=== PATIENT | male | born 1970 | race Caucasian/White ===

== ENCOUNTER → 2017-03-02 | Outpatient (CLI) | payer OTHER ==
--- NOTE | 2017-03-02 11:46 | CR ---
EXAMINATION: Right shoulder HISTORY: Pain COMPARISON: None TECHNIQUE: 3 views FINDINGS/IMPRESSION: There is no acute osseous abnormality, dislocation, or fracture identified. Bon e mineralization and joint spaces appear preserved.
== END | disposition home or self-care (01) ==
LOC: MW.CHORTHO 07:56
PROVIDERS: ATTEND Orthopaedic Surgery
DX: M25.511 Pain in right shoulder (principal)
CPT/HCPCS: 73030-26-RT; 73030-RT

== ENCOUNTER → 2017-03-06 | Outpatient (CLI) | payer OTHER ==
--- NOTE | 2017-03-07 10:59 | MR ---
EXAM DATE: 03/06/17 PATIENT'S AGE: 46 Patient: BATSHEVA HU Facility: [place], [place] Site . Site : 1970 Study: MRI Shoulder Right [id number]/2017 6:45:43 PM Ordering Physician: My Ramos Final Report: HISTORY: Right shoulder pain. Pain with shoulder movement. Technique: MRI right shoulder without contrast. Comparison: None. Findings: Rotator cuff: Low-grade partial-thickness articular surface tearing of the supraspinatus tendon footplate. Tear measures 0.7 cm in AP dimension by 0.2 cm in medial-lateral dimension. Distal supraspinatus and infraspinatus tendons are otherwise thickened with heterogeneous intermediate to near fluid intensity signal. There may be low-grade articular surface fraying of the supraspinatus tendon medial to the insertion. Low grade partial-thickness bursal surface tearing of the subscapularis tendon over an area measuring 0.4 x 0.4 cm. Moderate subscapularis tendinosis. Teres minor tendon is intact. Rotator cuff muscle bulk and signal intensity are within normal limits. Acromioclavicular joint and coracoacromial arch: Mild AC joint degenerative changes. No inferior hypertrophy. Type 1 acromial morphology. Acromiohumeral interval measures 7 mm. Coracoacromial ligament is thickened near the acromial attachment. Coracoclavicular ligament is intact. Biceps-labral complex: Long head biceps tendon is intact. No biceps tendon subluxation. Tearing of the superior, posterior-superior, and posterior- inferior labrum. Small paralabral cysts along the posterior-superior posterior and inferior margin of the glenoid. No cyst extension into the suprascapular spinoglenoid notches. Anterior-inferior labrum is intact. Glenohumeral joint: No focal cartilage defects. No joint effusion. Bones and soft tissues: No fracture. No marrow replacing process. No subacromial -subdeltoid bursal effusion. Deltoid muscle bulk and signal intensity are normal. No abnormality in the suprascapular or spinoglenoid notches or in the quadrilateral space. Impression: 1. No high-grade partial-thickness or full-thickness rotator cuff tear. Low- grade partial-thickness articular surface tear of the subscapularis tendon at the insertion. Moderate-severe tendinosis versus strain related changes of the supraspinatus and infraspinatus tendons. 2. Moderate subscapularis tendinosis with low-grade partial-thickness bursal surface tearing. 3. Tear of the superior, posterior-superior, and posterior inferior labrum with small paralabral cysts. 4. Mild AC joint degenerative changes. 5. Intact biceps tendon. Dictated by Tuan Bryant MD @ Mar 07 2017 9:44AM (Electronic Signature) Report Signed by Proxy and Original Signed Document filed in the Medical Record. MTDD
== END ==
LOC: MW.MRI 16:19
PROVIDERS: ATTEND Orthopaedic Surgery
DX: M25.511 Pain in right shoulder (principal); R74.0 Nonspecific elevation of levels of transaminase and lactic acid dehydrogenase [LDH]; M75.81 Other shoulder lesions, right shoulder; S43.491A Other sprain of right shoulder joint, initial encounter
CPT/HCPCS: 36415; 73221-26-RT; 73221-RT; 80053

== ENCOUNTER → 2017-03-14 | Outpatient (CLI) | payer BC ==
--- NOTE | 2017-03-15 13:22 | US ---
EXAM DATE: 03/14/17 PATIENT'S AGE: 46 Patient: BATSHEVA HU Facility: [place], [place] Site . Site : 1970 Study: US Abdomen [id number] 9:35:42 AM Ordering Physician: Fabiana Chappell Final Report: INDICATION: Elevated transaminase TECHNIQUE: Ultrasound abdomen limited. Sonographic images of the right upper quadrant were obtained using barroso-scale and color Doppler images. COMPARISON: None FINDINGS: Liver: Diffuse fatty infiltration of the liver. No masses. No intrahepatic biliary dilatation. Gallbladder: No stones or sludge. Normal wall thickness. No pericholecystic fluid. Common bile duct: 5 mm. Pancreas: Normal. Right kidney: 11.6 cm. Normal echotexture and cortex. No masses, stones, or hydronephrosis. None. IMPRESSION: Diffuse fatty infiltration of the liver. Sonographically normal gallbladder and common bile duct. Dictated by Elias Price MD @ Mar 15 2017 10:08AM (Electronic Signature) Report Signed by Proxy and Original Signed Document filed in the Medical Record. [facility]
--- NOTE | 2017-03-16 14:04 | CR ---
EXAM DATE: 03/14/17 PATIENT'S AGE: 46 Patient: BATSHEVA HU Facility: [place], [place] Site . Site : 1970 Study: XRay Knee Left [id number]/2017 2:52:17 PM Ordering Physician: Fabiana Chappell Final Report: HISTORY: Pain. Findings: Standing AP and PA views of both knees were obtained with lateral an sunrise views of the left knee. Exam is compared with 19 August 2014. Space are preserved. There is mild spurring of the medial femoral condyle and lateral femoral condyle. Small amount of suprapatellar joint fluid is seen. No fracture or dislocation. Impression: 1. Mild degenerative changes of the medial and lateral joint spaces of the left knee with mild spurring of the femur. 2. Small amount of suprapatellar joint fluid without acute bony abnormality. Dictated by Mai Malik MD @ Mar 15 2017 10:08PM (Electronic Signature) Report Signed by Proxy. RAJINDER
== END ==
LOC: MW.US 08:49
PROVIDERS: ATTEND Physician Assistant
DX: M25.562 Pain in left knee (principal); R74.0 Nonspecific elevation of levels of transaminase and lactic acid dehydrogenase [LDH]; M76.891 Other specified enthesopathies of right lower limb, excluding foot; M25.461 Effusion, right knee; K76.0 Fatty (change of) liver, not elsewhere classified
CPT/HCPCS: 73564-26-LT; 73564-LT; 76705; 76705-26

== ENCOUNTER 2018-12-26 09:14 | Emergency (ER) | payer BC, OTHER ==
--- NOTE | 2018-12-26 10:26 | CR ---
EXAMINATION: Two-view chest (PA and Lateral views). HISTORY: Shortness of breath. FINDINGS: The trachea is midline. The cardiomediastinal silhouette is within normal limits. No pulmonary infiltrates, effusions or pneumothorax. Osseous structures appear unremarkable. IMPRESSION: No acute cardiopulmonary process.
--- NOTE | 2018-12-26 10:45 | EDM.PDOC ---
ED HPI GENERAL MEDICAL PROBLEM - General Chief Complaint: Respiratory Problem Stated Complaint: FEVER,COUGH Time Seen by Provider: 12/26/18 09:36 Source of Information: Reports: Patient History Limitations: Reports: No Limitations - History of Present Illness INITIAL COMMENTS - FREE TEXT/NARRATIVE: History of present illness: []Patient's had 4 days of cough, body aches, fevers, chills, congestion and this morning noted that he coughed up a small amount blood in the shower. Denies any chest pain, shortness of breath or syncope Review of systems: As per history of present illness and below otherwise all systems reviewed and negative. Past medical history: As per history of present illness and as reviewed below otherwise noncontributory. Surgical history: As per history of present illness and as reviewed below otherwise noncontributory. Social history: No reported history of drug or alcohol abuse. Family history: As per history of present illness and as reviewed below otherwise noncontributory. Physical exam: General: Well developed, well nourished in NAD HEENT: Atraumatic, normocephalic, pupils reactive, negative for conjunctival pallor or scleral icterus, mucous membranes moist, throat clear, neck supple, nontender, trachea midline. No stridor, TMs normal Lungs: Clear to auscultation, breath sounds equal bilaterally, chest nontender. No rhonchi Heart: S1S2, regular, negative for clicks, rubs, or JVD. Abdomen: NABS, Soft, nondistended, nontender. Negative for masses or hepatosplenomegaly. Negative for costovertebral tenderness. Pelvis: Stable nontender. Genitourinary: Deferred. Rectal: Deferred. Extremities: Atraumatic, negative for cords or calf pain. Neurovascular unremarkable. Neuro: Awake, alert, oriented. Cranial nerves II through XII unremarkable. Cerebellum unremarkable. Motor and sensory unremarkable throughout. Exam nonfocal. Skin:warm and dry Diagnostics: Influenza chest x-ray both negative Therapeutics: Declined pain meds ED Course: Unremarkable Impression: Viral bronchitis Prescriptions: None Plan: Follow-up with primary care, Motrin, Tylenol, increase fluids. Definitive disposition and diagnosis as appropriate pending reevaluation and review of above. Generalized Pain Score (Numeric/FACES): 4 - Related Data Allergies Allergy/AdvReac Type Severity Reaction Status Date / Time hydrocodone Allergy Nausea Verified 12/26/18 09:25 oxycodone [Oxycodone] Allergy Nausea Verified 12/26/18 09:25 Home Meds: Home Meds Aspirin 325 mg PO DAILY 03/11/14 [History] Past Medical History Neurological History: Reports: CVA - Infectious Disease History Infectious Disease History: Reports: Meningitis, Shingles - Past Surgical History HEENT Surgical History: Reports: Tonsillectomy Musculoskeletal Surgical History: Reports: Arthroscopic Knee, Carpal Tunnel, Shoulder Surgery Social & Family History - Family History Family Medical History: Noncontributory - Tobacco Use Years of Tobacco use: 20 Packs/Tins Daily: 1 - Caffeine Use Caffeine Use: Reports: None - Recreational Drug Use Recreational Drug Use: No ED ROS GENERAL - Review of Systems Review Of Systems: ROS reveals no pertinent complaints other than HPI. ED EXAM, GENERAL - Physical Exam Exam: See Below (See history of present illness) Course - Vital Signs Last Recorded V/S: Last Vital Signs Temp 97.9 F 12/26/18 09:21 Pulse 64 12/26/18 09:21 Resp 18 12/26/18 09:21 BP 130/89 12/26/18 09:21 Pulse Ox 96 12/26/18 09:21 Departure - Departure Time of Disposition: 10:43 Disposition: Home, Self-Care 01 Condition: Good Clinical Impression: Viral bronchitis - Discharge Information *PRESCRIPTION DRUG MONITORING PROGRAM REVIEWED*: No *COPY OF PRESCRIPTION DRUG MONITORING REPORT IN PATIENT ANIBAL: No Referrals: Hima Hudson MD [Primary Care Provider] - Additional Instructions: The following information is given to patients seen in the emergency department who are being discharged to home. This information is to outline your options for follow-up care. We provide all patients seen in our emergency department with a follow-up referral. The need for follow-up, as well as the timing and circumstances, are variable depending upon the specifics of your emergency department visit. If you don't have a primary care physician on staff, we will provide you with a referral. We always advise you to contact your personal physician following an emergency department visit to inform them of the circumstance of the visit and for follow-up with them and/or the need for any referrals to a consulting specialist. The emergency department will also refer you to a specialist when appropriate. This referral assures that you have the opportunity for follow-up care with a specialist. All of these measure are taken in an effort to provide you with optimal care, which includes your follow-up. Under all circumstances we always encourage you to contact your private physician who remains a resource for coordinating your care. When calling for follow-up care, please make the office aware that this follow-up is from your recent emergency room visit. If for any reason you are refused follow-up, please contact the [facility] Emergency Department at and asked to speak to the emergency department charge nurse. [facility] [address] [place] [id number]
[2018-12-26 10:50] VITALS: BP 107/80
== END 2018-12-26 10:50 | disposition home or self-care (01) ==
LOC: MW.ED 09:14
DX: J20.8 Acute bronchitis due to other specified organisms (principal); B97.89 Other viral agents as the cause of diseases classified elsewhere; Z88.6 Allergy status to analgesic agent; Z79.82 Long term (current) use of aspirin; Z86.73 Personal history of transient ischemic attack (TIA), and cerebral infarction without residual deficits; Z98.890 Other specified postprocedural states
CPT/HCPCS: 71046; 71046-26; 87804; 99284

== ENCOUNTER 2020-01-08 11:38 | Day surgery (SDC) | payer BC, OTHER ==
[~2020-01-08 11:38] MED LIST: Bupivacaine 0.5% 10 ML SDV ONE; Lactated Ringers 1,000 ML IV SCH; ceFAZolin 2 GM in Premix Bag 1 BAG IV SCH
[2020-01-08] MEDS ORDERED: Midazolam 1 MG/ML 2 ML SDV ONE ×2 (12:03→12:54)
[2020-01-08] MEDS ORDERED: fentaNYL 100 MCG/2 ML SDV ONE ×2 (12:03→12:54)
[2020-01-08] MEDS ORDERED: Rocuronium 100 MG/10 ML Syringe ONE (12:34)
[2020-01-08] MEDS ORDERED: Lidocaine 2% 5 ML SDV ONE (12:34)
[2020-01-08] MEDS ORDERED: Propofol 200 MG/20 ML SDV ONE ×2 (12:34→12:39)
--- NOTE | 2020-01-08 12:55 | PCM.PREANE ---
Preanesthetic Assessment - Anesthesia/Transfusion/Family Hx Anesthesia History: Prior Anesthesia Without Reaction Other Type of Anesthesia Reaction Comment: Spouse denies any known problem in past, 'little motion sickness' Family History of Anesthesia Reaction: No Transfusion History: No Prior Transfusion(s) Intubation History: Unknown - Review of Systems General: No Symptoms Pulmonary: No Symptoms Cardiovascular: No Symptoms Gastrointestinal: No Symptoms Neurological: No Symptoms Other: Reports: None - Physical Assessment Vital Signs: Last Vital Signs Temp 35.8 C L 01/08/20 11:50 Pulse 42 L 01/08/20 11:50 Resp 15 01/08/20 11:50 BP 125/87 01/08/20 11:50 Pulse Ox 99 01/08/20 11:50 Height: 6 ft Weight: 99.79 kg ASA Class: 2 Mental Status: Alert & Oriented x3 Airway Class: Mallampati = 2 Dentition: Reports: Normal Dentition Thyro-Mental Finger Breadths: 3 Mouth Opening Finger Breadths: 2 ROM/Head Extension: Full Lungs: Clear to Auscultation, Normal Respiratory Effort Cardiovascular: Regular Rate, Regular Rhythm - Allergies Allergies/Adverse Reactions: Allergies Allergy/AdvReac Type Severity Reaction Status Date / Time No Known Allergies Allergy Verified 01/03/20 12:27 - Blood Blood Available: No - Anesthesia Plan Pre-Op Medication Ordered: None - Acknowledgements Anesthesia Type Planned: General Anesthesia (interscalene brachial plexus block for postoperative pain control) Pt an Appropriate Candidate for the Planned Anesthesia: Yes Alternatives and Risks of Anesthesia Discussed w Pt/Guardian: Yes Pt/Guardian Understands and Agrees with Anesthesia Plan: Yes PreAnesthesia Questionnaire HEENT History: Reports: Other (See Below) Other HEENT History: wears glasses Respiratory History: Reports: Sleep Apnea Other Respiratory History: was just tested for sleep apnea and has not received CPAP yet Gastrointestinal History: Reports: GERD Other Gastrointestinal History: takes OTC medications (rolaids) Musculoskeletal History: Reports: Arthritis, Back Pain, Chronic, Fracture Other Musculoskeletal History: hx of fx ribs and left radius Neurological History: Reports: Concussion, CVA, Migraines Other Neuro History: had a stroke in 2009 from unknown causes- rt. side weakness plus speech ,no residual, takes daily aspirin Hematologic History: Reports: Anticoagulation Therapy Other Hematologic History: takes Aspirin 325mg daily Oncologic (Cancer) History: Dermatologic History: Reports: Other (See Below) Other Dermatologic History: recent rash on elbows - Infectious Disease History Infectious Disease History: Reports: Meningitis, Shingles - Past Surgical History Head Surgeries/Procedures: Reports: None HEENT Surgical History: Reports: Tonsillectomy Male Surgical History: Reports: Vasectomy Musculoskeletal Surgical History: Reports: Arthroscopic Knee, Shoulder Surgery Other Musculoskeletal Surgeries/Procedures:: hx of 2 left knee arthroscopies and right knee arthroscopy, hx of dislocated right shoulder '97 - SUBSTANCE USE Tobacco Use Within Last Twelve Months: Snuff/Dip Recreational Drug Use History: No - HOME MEDS Home Medications: Home Meds Aspirin 325 mg PO DAILY 03/11/14 [History] Ondansetron HCl [Zofran] 8 mg PO TID #15 tablet 01/08/20 [Rx] oxyCODONE HCl/Acetaminophen [Percocet 5-325 mg Tablet] 1 each PO Q6HR #28 tablet 01/08/20 [Rx] - CURRENT (IN HOUSE) MEDS Current Meds: Current Medications Cefazolin Sodium/Dextrose 2 gm (/ Premix) 50 mls @ 100 mls/hr IV ONCALL DONELL Lactated Ringer's (Ringers, Lactated) 1,000 mls @ 100 mls/hr IV ASDIRECTED DONELL Discontinued Medications Bupivacaine HCl (Sensorcaine-Mpf 0.5%) Confirm Administered Dose 10 ml .ROUTE .STK-MED ONE Stop: 01/08/20 11:39 Fentanyl (Sublimaze) Confirm Administered Dose 100 mcg .ROUTE .STK-MED ONE Stop: 01/08/20 12:04 Lidocaine (Xylocaine-Mpf 2%) Confirm Administered Dose 5 ml .ROUTE .STK-MED ONE Stop: 01/08/20 12:35 Midazolam HCl (Versed 1 Mg/Ml) Confirm Administered Dose 2 mg .ROUTE .STK-MED ONE Stop: 01/08/20 12:04 Propofol (Diprivan 20 Ml) Confirm Administered Dose 200 mg .ROUTE .STK-MED ONE Stop: 01/08/20 12:35 Propofol (Diprivan 20 Ml) Confirm Administered Dose 200 mg .ROUTE .STK-MED ONE Stop: 01/08/20 12:40 Rocuronium [place] (Zemuron) Confirm Administered Dose 100 mg .ROUTE .STK-MED ONE Stop: 01/08/20 12:35
[2020-01-08] MEDS ORDERED: Glycopyrrolate 0.2 MG/ML SDV ONE ×2 (13:39)
[2020-01-08] MEDS ORDERED: Ondansetron 4 MG/2 ML SDV ONE (14:10)
[2020-01-08] MEDS ORDERED: ePHEDrine 50 MG/ML SDV ONE (14:14)
[2020-01-08] MEDS ORDERED: Sugammadex Sodium 200 MG/2 ML VIAL ONE (14:23)
--- NOTE | 2020-01-08 15:01 | PCM.SN ---
- Free Text/Narrative Note: Procedure note: Right interscalene brachial plexus block for postoperative pain control. The brachial plexus easily identified under sterile conditions using Stimuplex needle. Mixture of 20 cc of 0.5 Bupivacaine and 10 cc of 2% lidocaine injected. Excellent block achieved. Patient tolerated procedure well.
--- NOTE | 2020-01-08 15:45 | PCM.POSTAN ---
POST ANESTHESIA ASSESSMENT - MENTAL STATUS Mental Status: Alert, Oriented - VITAL SIGNS Vital Signs: Last Vital Signs Temp 35.7 C L 01/08/20 15:04 Pulse 59 L 01/08/20 15:33 Resp 13 01/08/20 15:33 BP 114/81 01/08/20 15:33 Pulse Ox 97 01/08/20 15:33 - RESPIRATORY Respiratory Status: Respiratory Rate WNL, Airway Patent, O2 Saturation Stable - CARDIOVASCULAR CV Status: Pulse Rate WNL, Blood Pressure Stable - GASTROINTESTINAL GI Status: No Symptoms - PAIN Pain Score: 4 - POST OP HYDRATION Hydration Status: Adequate & Stable - OBSERVATIONS Free Text/Narrative:: No anesthesia problems.
[2020-01-08] MEDS ORDERED: Ketorolac 30 MG/ML SDV IVPUSH ONE (16:13)
[2020-01-08] MEDS ORDERED: Ketorolac 30 MG/ML SDV ONE (16:17)
--- NOTE | 2020-01-08 17:27 | PCM48HPAN ---
Post Anesthesia Note - EVALUATION WITHIN 48HRS OF ANESTHETIC Vital Signs in Normal Range: Yes Patient Participated in Evaluation: Yes Respiratory Function Stable: Yes Airway Patent: Yes Cardiovascular Function Stable: Yes Hydration Status Stable: Yes Pain Control Satisfactory: Yes Nausea and Vomiting Control Satisfactory: Yes Mental Status Recovered: Yes Vital Signs: Last Vital Signs Temp 36.0 C L 01/08/20 15:20 Pulse 59 L 01/08/20 15:33 Resp 13 01/08/20 15:33 BP 114/81 01/08/20 15:33 Pulse Ox 97 01/08/20 15:33 - COMMENTS/OBSERVATIONS Free Text/Narrative:: No anesthesia problems.
[2020-01-08 17:59] VITALS: BP 116/82; PULSE 46
--- NOTE | 2020-01-09 16:42 | PCM.OPNOTE ---
- General Post-Op/Procedure Note Date of Surgery/Procedure: 01/08/20 Operative Procedure(s): right shoulder arthroscopy. subacromial decompression. labral debridement. rotator cuff repair Pre Op Diagnosis: right shoulder rotator cuff tear. right shoulder impingement. right glenoid labral tear Post-Op Diagnosis: Same Anesthesia Technique: General ET Tube Primary Surgeon: Suresh Holm Trauma Surgeon: Jada Crowley EBL in mLs: 25 Complications: None Condition: Stable
--- NOTE | 2020-01-09 22:48 | OR ---
SURGEON: Suresh Holm DATE OF PROCEDURE: 01/08/2020 PREOPERATIVE DIAGNOSIS: Right shoulder rotator cuff tear, right shoulder impingement, right glenoid labral tear. POSTOPERATIVE DIAGNOSIS: Right shoulder rotator cuff tear, right shoulder impingement, right glenoid labral tear. PROCEDURE: Right shoulder arthroscopy, right shoulder subacromial decompression, labral debridement, and open rotator cuff repair. BREAK AND LOAD OPERATOR: SVEN Pino ROLE OF BREAK AND LOAD OPERATOR: Nurse practitioner, SVEN Pino, played an essential role in assisting in this case, helping to position the patient, retract structures as needed, as well as suturing and cutting sutures as indicated. Her presence improved patient's safety and decreased operative time. ANESTHESIA: General endotracheal intubation. FLUIDS: Lactated Ringer's solution. ESTIMATED BLOOD LOSS: 25 mL. COMPLICATIONS: None. SPECIMEN: None. DISCHARGE DISPOSITION: Stable to PACU. HISTORY AND INDICATION FOR THE PROCEDURE: The patient was seen preoperatively in the clinic. He had failed nonoperative treatment. Preoperative imaging confirmed the above-mentioned diagnosis. Risks and goals of the procedure were explained to the patient and informed consent was obtained. DETAILS OF THE PROCEDURE: The patient was seen preoperatively by me and the Anesthesia staff in the preoperative holding area where the operative site was marked. He had an interscalene block performed preoperatively in the preoperative holding area by the anesthesia staff. He was brought to the operative suite by Anesthesia staff where general endotracheal intubation was performed. He was placed in the beach chair position. All extremities were found to be well padded. The right upper extremity was then prepped and draped in sterile manner. A time-out was called identifying the correct patient, the correct site, and then antibiotics had been given within appropriate period of time. A posterior portal was first made with a knife and then trocar was entered and then the camera was placed in. There was extensive labral fraying present. There was moderate chondromalacia of both the humeral and the glenoid side. There was an extensive synovitis present. Partial synovectomy was performed. An anterior portal was then made with the spinal needle knife and trocar and then a shaver was used to enter and debride the glenoid labrum and then an ablation unit was used to stabilize the edges of the labrum and then the synovectomy was performed with both the shaver and the ablation unit. After this had been cleaned up nicely, we then removed our instruments and then reinserted the trocar into the subacromial space from the posterior aspect and then made a lateral incision and inserted the shaver. An extensive bursitis was present. We performed an extensive bursectomy. I then visualized the acromion, which was at least type 3. I then used the ablation unit to delineate the edges anteriorly. We then used a bur through the lateral portal to perform a subacromial decompression. After this had been accomplished, we then removed our instruments and then I re-prepped with ChloraPrep, and then made a saber incision lateral to the distal acromion. I went through the anterior medial raphae of the deltoid. The MRI had shown that there was thinning of the fibers of the supraspinatus and I could feel this area. It was definitely thin. I made a longitudinal incision through this area and then prepped the area for the anchor. I placed an Iconix anchor and then used a free needle and whipstitched my sutures through the good portion of the tendon and then back to the anchor and then tied it. I then placed another anchor, which unfortunately broke off and then we placed another distal anchor and then a knotless anchor, and then ran our sutures through this anchor and then tightened them up and then cut the sutures. Having accomplished our goals, we then copiously irrigated with Betadine infused irrigation. My assist, closed the deltoid in a watertight manner with #1 Stratafix and then closed subcutaneously with #1 Stratafix followed by skin chi and our portals were closed with chi as well. Incisions were covered with Betadine-soaked Adaptic, fluffs, and Medipore tape. The patient was allowed to awaken from general anesthesia and taken to the PACU in stable condition. [id number] / MODL /[id number]
== END 2020-01-08 17:40 | disposition home or self-care (01) ==
LOC: MW.SDS 11:38
PROVIDERS: ATTEND Orthopaedic Surgery
DX: M75.101 Unspecified rotator cuff tear or rupture of right shoulder, not specified as traumatic (principal); M75.41 Impingement syndrome of right shoulder; S43.431A Superior glenoid labrum lesion of right shoulder, initial encounter; M94.211 Chondromalacia, right shoulder; M65.811 Other synovitis and tenosynovitis, right shoulder; M75.51 Bursitis of right shoulder; G89.18 Other acute postprocedural pain; E66.9 Obesity, unspecified; Z79.82 Long term (current) use of aspirin; Z68.31 Body mass index [BMI] 31.0-31.9, adult
CPT/HCPCS: 23410; 64415; J1885; J2001; J2250; J2405; J2704; J3010; J3490; J7120

== ENCOUNTER 2020-05-13 10:34 | Day surgery (SDC) | payer BC ==
[~2020-05-13 10:34] MED LIST changes: -Bupivacaine 0.5% 10 ML SDV ONE
--- NOTE | 2020-05-13 11:22 | PCM.PREANE ---
Preanesthetic Assessment - Anesthesia/Transfusion/Family Hx Anesthesia History: Prior Anesthesia Without Reaction Other Type of Anesthesia Reaction Comment: Spouse denies any known problem in past, 'little motion sickness' Family History of Anesthesia Reaction: No Transfusion History: No Prior Transfusion(s) Intubation History: Unknown - Review of Systems General: No Symptoms Pulmonary: No Symptoms Cardiovascular: No Symptoms Gastrointestinal: No Symptoms Neurological: No Symptoms Other: Reports: None - Physical Assessment Height: 6 ft Weight: 102.058 kg ASA Class: 2 Mental Status: Alert & Oriented x3 Airway Class: Mallampati = 2 Dentition: Reports: Normal Dentition Thyro-Mental Finger Breadths: 3 Mouth Opening Finger Breadths: 2 (smaller mouth) ROM/Head Extension: Full Lungs: Clear to Auscultation, Normal Respiratory Effort Cardiovascular: Regular Rate, Regular Rhythm - Allergies Allergies/Adverse Reactions: Allergies Allergy/AdvReac Type Severity Reaction Status Date / Time No Known Allergies Allergy Verified 05/11/20 11:29 - Blood Blood Available: No - Anesthesia Plan Pre-Op Medication Ordered: None - Acknowledgements Anesthesia Type Planned: General Anesthesia Pt an Appropriate Candidate for the Planned Anesthesia: Yes Alternatives and Risks of Anesthesia Discussed w Pt/Guardian: Yes Pt/Guardian Understands and Agrees with Anesthesia Plan: Yes PreAnesthesia Questionnaire HEENT History: Reports: Other (See Below) Other HEENT History: wears glasses Respiratory History: Reports: Sleep Apnea Other Respiratory History: was just tested for sleep apnea and has not received CPAP yet Gastrointestinal History: Reports: GERD Other Gastrointestinal History: takes OTC medications (rolaids) Musculoskeletal History: Reports: Arthritis, Back Pain, Chronic, Fracture (5th rt. 5th metacarpal bone fx.) Other Musculoskeletal History: hx of fx ribs and left radius Neurological History: Reports: Concussion, CVA, Migraines Other Neuro History: had a stroke in 2009 from unknown causes- rt. side weakness plus speech ,no residual, takes daily aspirin Endocrine/Metabolic History: Reports: Obesity/BMI 30+ (BMI 30.5) Hematologic History: Reports: Anticoagulation Therapy Other Hematologic History: takes Aspirin 325mg daily Oncologic (Cancer) History: Dermatologic History: Reports: Other (See Below) Other Dermatologic History: recent rash on elbows - Infectious Disease History Infectious Disease History: Reports: Meningitis, Shingles - Past Surgical History HEENT Surgical History: Reports: Tonsillectomy Male Surgical History: Reports: Vasectomy Musculoskeletal Surgical History: Reports: Arthroscopic Knee, Shoulder Surgery Other Musculoskeletal Surgeries/Procedures:: hx of 2 left knee arthroscopies and right knee arthroscopy, hx of dislocated right shoulder '97 - SUBSTANCE USE Smoking Status *Q: Current Every Day Smoker Tobacco Use Within Last Twelve Months: Snuff/Dip Recreational Drug Use History: No - HOME MEDS Home Medications: Home Meds Aspirin 325 mg PO DAILY 03/11/14 [History] - CURRENT (IN HOUSE) MEDS Current Meds: Current Medications Lactated Ringer's (Ringers, Lactated) 1,000 mls @ 100 mls/hr IV ASDIRECTED DONELL Cefazolin Sodium/Dextrose 2 gm (/ Premix) 50 mls @ 100 mls/hr IV ONCALL DONELL
[2020-05-13] MEDS ORDERED: Bupivacaine 0.5%/EPINEPHrine 1:200,000 10 ML SDV ONE (12:15)
[2020-05-13] MEDS ORDERED: Ondansetron 4 MG/2 ML SDV ONE (12:17)
[2020-05-13] MEDS ORDERED: Ketorolac 30 MG/ML SDV ONE (12:17)
[2020-05-13] MEDS ORDERED: Glycopyrrolate 0.2 MG/ML SDV ONE (12:17)
[2020-05-13] MEDS ORDERED: Lidocaine 2% 5 ML SDV ONE (12:17)
[2020-05-13] MEDS ORDERED: Midazolam 1 MG/ML 2 ML SDV ONE (12:18)
[2020-05-13] MEDS ORDERED: fentaNYL 100 MCG/2 ML SDV ONE (12:18)
[2020-05-13] MEDS ORDERED: Propofol 200 MG/20 ML SDV ONE (12:18)
[2020-05-13] MEDS ORDERED: Sodium Chloride 0.9% 20 ML ONE (12:42)
[2020-05-13] MEDS ORDERED: ceFAZolin 1 GM Vial ONE (12:42)
[2020-05-13] MEDS ORDERED: fentaNYL 100 MCG/2 ML SDV IVPUSH PRN ×2 (13:03→14:30)
[2020-05-13] MEDS ORDERED: Acetaminophen 1,000 MG in Premix Bag 1 BAG IV PRN (13:03)
--- NOTE | 2020-05-13 14:09 | PCM.OPNOTE ---
- General Post-Op/Procedure Note Date of Surgery/Procedure: 05/13/20 Operative Procedure(s): orif right 5th metacarpal neck Pre Op Diagnosis: right fifth metacarpal neck fracture, closed Post-Op Diagnosis: Same Anesthesia Technique: General ET Tube Primary Surgeon: Suresh Holm EBL in mLs: 25 Complications: None Condition: Good
--- NOTE | 2020-05-13 14:43 | CR ---
Right hand: 3 fluoroscopic spot views were obtained of the right hand utilizing C-arm device. Comparison: Prior right hand exam of 05/07/20. Previous distal right 5th metacarpal fracture shows evidence of reduction and fixation with plate and screws. No additional abnormality is seen. Fluoroscopy time given as 7.7 seconds. Impression: 1. Procedural study as described above. Diagnostic code #2 This report was dictated in MDT
--- NOTE | 2020-05-13 14:50 | PCM.POSTAN ---
POST ANESTHESIA ASSESSMENT - MENTAL STATUS Mental Status: Alert, Oriented - VITAL SIGNS Vital Signs: Last Vital Signs Temp 36.2 C 05/13/20 14:19 Pulse 67 05/13/20 14:46 Resp 14 05/13/20 14:46 BP 131/78 05/13/20 14:46 Pulse Ox 94 L 05/13/20 14:46 - RESPIRATORY Respiratory Status: Respiratory Rate WNL, Airway Patent, O2 Saturation Stable - CARDIOVASCULAR CV Status: Pulse Rate WNL, Blood Pressure Stable - GASTROINTESTINAL GI Status: No Symptoms - PAIN Pain Score: 4 - POST OP HYDRATION Hydration Status: Adequate & Stable - OBSERVATIONS Free Text/Narrative:: No anesthesia problems
[2020-05-13] MEDS ORDERED: Acetaminophen/oxyCODONE 325-5 MG Tab PO PRN (15:02)
[2020-05-13] MEDS ORDERED: Acetaminophen/oxyCODONE 325-5 MG Tab ONE (15:18)
--- NOTE | 2020-05-13 15:38 | PCM48HPAN ---
Post Anesthesia Note - EVALUATION WITHIN 48HRS OF ANESTHETIC Vital Signs in Normal Range: Yes Patient Participated in Evaluation: Yes Respiratory Function Stable: Yes Airway Patent: Yes Cardiovascular Function Stable: Yes Hydration Status Stable: Yes Pain Control Satisfactory: Yes Nausea and Vomiting Control Satisfactory: Yes Mental Status Recovered: Yes Vital Signs: Last Vital Signs Temp 36.2 C 05/13/20 14:19 Pulse 67 05/13/20 14:46 Resp 14 05/13/20 14:46 BP 131/78 05/13/20 14:46 Pulse Ox 94 L 05/13/20 14:46 - COMMENTS/OBSERVATIONS Free Text/Narrative:: No anesthesia problems
--- NOTE | 2020-05-13 16:36 | OR ---
SURGEON: Suresh Holm DATE OF PROCEDURE: 05/13/2020 PREOPERATIVE DIAGNOSIS: Right 5th metacarpal neck fracture, closed. POSTOPERATIVE DIAGNOSIS: Right 5th metacarpal neck fracture, closed. PROCEDURES: 1. Right 5th metacarpal open reduction and internal fixation. 2. Application of short-arm splint. PRIMARY SURGEON: Suresh Holm DO KINESIOTHERAPIST: SVEN Pino ROLE OF KINESIOTHERAPIST: Nurse practitioner, SVEN Pino, played an essential role in assisting in this case, helping to position the patient, retract structures as needed, as well as suturing and cutting sutures as indicated. Her presence improved patient's safety and decreased operative time. ANESTHESIA: General endotracheal intubation. FLUID: Lactated Ringer's solution. ESTIMATED BLOOD LOSS: 25 mL. COMPLICATIONS: None. SPECIMEN: None. DISCHARGE DISPOSITION: Stable to PACU. HISTORY AND INDICATIONS FOR THE PROCEDURE: The patient is well known to me. He hurt his right hand about a week and a half to two weeks ago. He was seen in clinic. He was found to have the above- mentioned fracture. Risks and goals of the procedure were explained to the patient and informed consent was obtained. DETAILS OF PROCEDURE: The patient was seen preoperatively by myself and the Anesthesia staff in the preoperative holding area where the operative site was marked. He was brought to the operative suite by the Anesthesia staff where general anesthesia was administered. A well-padded tourniquet was placed on the right arm. The right upper extremity was then prepped and draped in a sterile manner. Time-out was called identifying the correct patient, the correct procedure, the correct site, and that antibiotics had been given within appropriate period of time. The right upper extremity was exsanguinated, tourniquet was raised to 200 mmHg and taken down to the end of the case. An incision was made just distal to the metacarpophalangeal joint extending proximally about 5 cm. This was taken down to the tendon. The tendon was moved ulnarly. I cut through one of the juncturae tendinae in order to separate this. I went down on the bone. The fracture line was visualized. It was definitely in about 25 degrees of flexion. I used a K-wire to hold this in position in extension. There were ulnar and radial fragments. I did place traction on this, but these did not reduce, and it was unclear as to where they were keying in at. I placed my distal screws with an L-plate, which provided some traction to get it at the length, and then kept the neck in proper angulation and then placed one of my nonlocking screws through the plate proximally. I then placed one locking screw and the remainder were locking screws. I then took my final AP, lateral, and oblique films. I then copiously irrigated with saline. I then repaired the juncturae tendinae and closed subcutaneously with 2-0 Vicryl interrupted sutures followed by 3-0 nylon horizontal mattress sutures. I did use Bovie electrocautery for hemostasis. After this had been accomplished, my first assistant then applied an ulnar gutter splint with plaster. The patient was then allowed to awaken from general anesthesia and taken to the PACU in stable condition. [id number] / MODL /[id number]
[2020-05-13 16:48] VITALS: BP 104/81; PULSE 63
== END 2020-05-13 15:45 | disposition home or self-care (01) ==
LOC: MW.SDS 10:34
PROVIDERS: ATTEND Orthopaedic Surgery
DX: S62.336A Displaced fracture of neck of fifth metacarpal bone, right hand, initial encounter for closed fracture (principal); Z11.59 Encounter for screening for other viral diseases; E66.9 Obesity, unspecified; F17.220 Nicotine dependence, chewing tobacco, uncomplicated; Z79.899 Other long term (current) drug therapy; Z68.35 Body mass index [BMI] 35.0-35.9, adult; W55.22XA Struck by cow, initial encounter; Y93.89 Activity, other specified
CPT/HCPCS: 26615; 76000; 87635; A9270; C1713; J0690; J1885; J2001; J2250; J2405; J2704; J3010; J3490; J7120; U0002

== ENCOUNTER 2022-04-20 10:36 | Day surgery (SDC) | payer BC ==
[~2022-04-20 10:36] MED LIST changes: -ceFAZolin 2 GM in Premix Bag 1 BAG IV SCH; +propofoL 100 ML ONE
[2022-04-20] MEDS ORDERED: Ondansetron 4 MG/2 ML SDV ONE (11:20)
[2022-04-20] MEDS ORDERED: Lidocaine 2% 5 ML SDV ONE (11:20)
[2022-04-20 14:10] VITALS: BP 116/77; PULSE 59
== END 2022-04-20 13:35 | disposition home or self-care (01) ==
LOC: MW.SDS 10:36
PROVIDERS: ATTEND Surgery
DX: Z12.11 Encounter for screening for malignant neoplasm of colon (principal); K57.30 Diverticulosis of large intestine without perforation or abscess without bleeding; K29.50 Unspecified chronic gastritis without bleeding; K21.9 Gastro-esophageal reflux disease without esophagitis; F17.220 Nicotine dependence, chewing tobacco, uncomplicated; Z80.0 Family history of malignant neoplasm of digestive organs; E66.9 Obesity, unspecified; I10 Essential (primary) hypertension; Z98.890 Other specified postprocedural states; Z79.82 Long term (current) use of aspirin; Z79.899 Other long term (current) drug therapy
CPT/HCPCS: J2405; J2704

== ENCOUNTER 2023-01-18 06:36 | Day surgery (SDC) | payer BC ==
[~2023-01-18 06:36] MED LIST changes: -propofoL 100 ML ONE
[2023-01-18] MEDS ORDERED: Naloxone 0.4 MG/ML SDV IVPUSH PRN (07:12)
[2023-01-18] MEDS ORDERED: Morphine 2 MG/ML SYRINGE IVPUSH PRN (07:12)
[2023-01-18] MEDS ORDERED: HYDROmorphone 1 MG/ML Syringe IVPUSH PRN (07:12)
[2023-01-18] MEDS ORDERED: fentaNYL 50 MCG/ML SDV IVPUSH PRN (07:12)
[2023-01-18] MEDS ORDERED: Ondansetron 4 MG/2 ML SDV IVPUSH PRN (07:12)
[2023-01-18] MEDS ORDERED: Albuterol 0.083% 2.5 MG/3 ML Neb Soln NEB PRN (07:12)
[2023-01-18] MEDS ORDERED: Metoclopramide 10 MG/2 ML SDV IVPUSH PRN (07:12)
[2023-01-18] MEDS ORDERED: Bupivacaine 0.25% 30 ML SDV ONE (07:22)
[2023-01-18] MEDS ORDERED: Ropivacaine 0.5% 5 MG/ML 30 ML SDV ONE (07:30)
[2023-01-18] MEDS ORDERED: fentaNYL 250 MCG/5 ML SDV ONE (07:41)
[2023-01-18] MEDS ORDERED: Propofol 200 MG/20 ML SDV ONE (07:41)
[2023-01-18] MEDS ORDERED: ceFAZolin 2 GM in Premix Bag 1 BAG IV SCH (08:00)
[2023-01-18] MEDS ORDERED: Lidocaine 2% 5 ML SDV ONE (08:03)
[2023-01-18] MEDS ORDERED: ceFAZolin 2 GM Vial ONE (08:03)
[2023-01-18] MEDS ORDERED: Glycopyrrolate 0.2 MG/ML SDV ONE ×2 (08:03)
[2023-01-18] MEDS ORDERED: Ondansetron 4 MG/2 ML SDV ONE (09:21)
[2023-01-18] MEDS ORDERED: Ketorolac 30 MG/ML SDV ONE (09:21)
[2023-01-18] MEDS ORDERED: Dexamethasone 4 MG/ML 5 ML MDV ONE (09:21)
[2023-01-18 10:56] VITALS: BP 133/84; PULSE 55
== END 2023-01-18 09:43 | disposition home or self-care (01) ==
LOC: MW.SDS 06:36
PROVIDERS: ATTEND Orthopaedic Surgery
DX: G56.01 Carpal tunnel syndrome, right upper limb (principal); F51.04 Psychophysiologic insomnia; K21.9 Gastro-esophageal reflux disease without esophagitis; I10 Essential (primary) hypertension; G47.33 Obstructive sleep apnea (adult) (pediatric); Z79.899 Other long term (current) drug therapy; M17.12 Unilateral primary osteoarthritis, left knee
CPT/HCPCS: 64721; J0131; J0690; J1100; J1885; J2405; J2704; J2795; J3010; J3490; J7120

== ENCOUNTER 2023-05-01 08:59 | Observation (INO) | payer BC ==
[2023-05-01 09:29] LABS: BASOPHILS PERCENT AUTO 0.3 % (0.0-1.5); EOSINOPHILS ABSOLUTE AUTO 0.1 K/uL (0.0-0.7); EOSINOPHILS PERCENT AUTO 1.6 % (0.0-7.0); HEMATOCRIT 45.3 % (38.0-50.0); HEMOGLOBIN 15.6 g/dL (13.0-17.0); LYMPHOCYTES ABSOLUTE AUTO 2.5 K/uL (0.6-2.4); LYMPHOCYTES PERCENT AUTO 33.7 % (16.0-40.0); MEAN CORPUSCULAR HEMOGLOBIN 32.4 pg (27.0-32.0); MEAN CORPUSCULAR HGB CONC 34.4 g/dL (31.0-37.0); MEAN CORPUSCULAR VOLUME 94.2 fL (80.0-98.0); MONOCYTES PERCENT AUTO 13.7 % (0.0-15.0); NEUTROPHILS ABSOLUTE AUTO 3.7 K/uL (1.4-5.7); NEUTROPHILS PERCENT AUTO 50.7 % (48.0-80.0); NRBC ABSOLUTE 0 K/uL; PLATELET COUNT,PLT 260 K/uL (150-400); RED BLOOD CELL COUNT 4.81 M/uL (4.50-5.90); WHITE BLOOD CELL COUNT,WBC 7.36 K/uL (4.0-11.0)
[2023-05-01 10:15] LABS: INR 0.94 (0.86-1.11); PTT,PARTIAL THROMBOPLSTIN TIME 26.1 SEC (23.9-30.7)
[2023-05-01 10:17] LABS: ALBUMIN 3.9 g/dL (3.4-5.0); BILIRUBIN TOTAL 0.5 mg/dL (0.2-1.0); CALCIUM 9.2 mg/dL (8.5-10.1); CARBON DIOXIDE,CO2 29.1 mmol/L (21.0-32.0); CREATININE 1.2 mg/dL (0.8-1.3); EST CRCL DRUG DOSING (CG) 79.94 mL/min; MAGNESIUM 2.1 mg/dL (1.8-2.4); POTASSIUM,K 3.9 mmol/L (3.5-5.1); PROTEIN TOTAL,TP 7.7 g/dL (6.4-8.2)
[2023-05-01] MEDS ORDERED: Gadobenate Dimeglumine 529 MG/ML 20 ML SDV IVPUSH STA (10:46)
[2023-05-01] MEDS ORDERED: Prochlorperazine 10 MG/2 ML SDV IVPUSH ONE (12:05)
[2023-05-01] MEDS ORDERED: diphenhydrAMINE 50 MG/ML SDV IVPUSH ONE (12:05)
[2023-05-01] MEDS ORDERED: Apixaban 5 MG Tab PO ONE (12:05)
[2023-05-01] MEDS ORDERED: Acetaminophen 325 MG Tab PO ONE (12:06)
[2023-05-01] MEDS ORDERED: Lactated Ringers 1,000 ML IV SCH (12:15)
[2023-05-01 13:05] LABS: HEMOGLOBIN A1C 5.7 %
[2023-05-01 13:32] LABS: TSH ULTRASENSITIVE 2.84 uIU/mL (0.36-3.74)
[2023-05-01] MEDS ORDERED: Clopidogrel 75 MG Tab PO SCH (14:45)
[2023-05-01] MEDS ORDERED: Aspirin 81 MG Tab.Chew PO SCH (14:45)
[2023-05-01 15:42] LABS: CALCIUM 9.5 mg/dL (8.5-10.1); CARBON DIOXIDE,CO2 24.2 mmol/L (21.0-32.0); CREATININE 1.3 mg/dL (0.8-1.3); EST CRCL DRUG DOSING (CG) 73.79 mL/min
[2023-05-01] MEDS: Pantoprazole 40 MG Tab.CR PO SCH (16:13)
[2023-05-01 17:12] LABS: APPEARANCE,URINE CLEAR; BILIRUBIN,URINE NEGATIVE (NEGATIVE); COLOR,URINE YELLOW; GLUCOSE,URINE NEGATIVE (NEGATIVE); KETONES,URINE NEGATIVE (NEGATIVE); LEUKOCYTE ESTERASE,URINE NEGATIVE (NEGATIVE); NITRITE,URINE NEGATIVE (NEGATIVE); OCCULT BLOOD,URINE NEGATIVE (NEGATIVE); PROTEIN,URINE NEGATIVE (NEGATIVE); UROBILINOGEN,URINE 0.2 EU/dL (<2.0)
[2023-05-01] MEDS ORDERED: Apixaban 5 MG Tab PO SCH (21:00)
[2023-05-01] MEDS ORDERED: atorvaSTATin 40 MG Tab PO SCH (21:00)
[2023-05-01] MEDS: Apixaban 5 MG Tab PO SCH (21:20)
[2023-05-02 06:01] LABS: BASOPHILS PERCENT AUTO 0.3 % (0.0-1.5); EOSINOPHILS ABSOLUTE AUTO 0.1 K/uL (0.0-0.7); EOSINOPHILS PERCENT AUTO 1.7 % (0.0-7.0); HEMATOCRIT 43.6 % (38.0-50.0); HEMOGLOBIN 14.8 g/dL (13.0-17.0); LYMPHOCYTES PERCENT AUTO 31.1 % (16.0-40.0); MEAN CORPUSCULAR HGB CONC 33.9 g/dL (31.0-37.0); MEAN CORPUSCULAR VOLUME 94.2 fL (80.0-98.0); MONOCYTES ABSOLUTE AUTO 0.9 K/uL (0.0-0.8); MONOCYTES PERCENT AUTO 13.3 % (0.0-15.0); NEUTROPHILS ABSOLUTE AUTO 3.4 K/uL (1.4-5.7); NEUTROPHILS PERCENT AUTO 53.6 % (48.0-80.0); NRBC ABSOLUTE 0 K/uL; PLATELET COUNT,PLT 237 K/uL (150-400); RED BLOOD CELL COUNT 4.63 M/uL (4.50-5.90); WHITE BLOOD CELL COUNT,WBC 6.39 K/uL (4.0-11.0)
[2023-05-02 06:25] LABS: CALCIUM 8.8 mg/dL (8.5-10.1); CARBON DIOXIDE,CO2 27.7 mmol/L (21.0-32.0); CREATININE 1.3 mg/dL (0.8-1.3); EST CRCL DRUG DOSING (CG) 73.79 mL/min; POTASSIUM,K 3.9 mmol/L (3.5-5.1)
[2023-05-02] MEDS: Pantoprazole 40 MG Tab.CR PO SCH (08:13)
[2023-05-02] MEDS: Apixaban 5 MG Tab PO SCH (08:13)
[2023-05-02 11:37] VITALS: BP 104/67; PULSE 54
== END 2023-05-02 10:20 | disposition home or self-care (01) ==
LOC: MW.ED 08:59 → MW.MS 12:58
PROVIDERS: ADMIT Internal Medicine; ATTEND Internal Medicine
DX: I10 Essential (primary) hypertension (principal); G43.909 Migraine, unspecified, not intractable, without status migrainosus; I63.9 Cerebral infarction, unspecified; R47.01 Aphasia; G47.30 Sleep apnea, unspecified; E66.9 Obesity, unspecified; Z86.718 Personal history of other venous thrombosis and embolism; Z79.899 Other long term (current) drug therapy; Z79.82 Long term (current) use of aspirin; Z86.73 Personal history of transient ischemic attack (TIA), and cerebral infarction without residual deficits; Z79.01 Long term (current) use of anticoagulants; Z98.890 Other specified postprocedural states
CPT/HCPCS: 36415; 70450; 70496; 70498; 70551; 80048; 80053; 80061; 81003; 82607; 82947; 83036; 83735; 84443; 84484; 85025; 85610; 85730; 86850; 86900; 86901; 93005; 93306; 93970; 96361; 96374; 96375; 99291; A9270; A9577; G0378; J0780; J1200; J7120

== ENCOUNTER 2024-06-27 23:03 | Observation (INO) | payer BC ==
[2024-06-27] MEDS ORDERED: Sodium Chloride 0.9% 10 ML Syringe FLUSH PRN (23:10)
[2024-06-27 23:17] LABS: BASOPHILS ABSOLUTE AUTO 0.03 K/uL (0.00-0.20); BASOPHILS PERCENT AUTO 0.3 % (0.0-1.0); EOSINOPHILS ABSOLUTE AUTO 0.12 K/uL (0.00-0.45); EOSINOPHILS PERCENT AUTO 1.4 % (0.0-6.0); HEMATOCRIT 46.5 % (42.0-52.0); IMMATURE GRAN ABSOLUTE AUTO 0.01 K/uL (0.00-0.05); IMMATURE GRAN PERCENT AUTO 0.1 % (0.0-0.4); LYMPHOCYTES ABSOLUTE AUTO 2.65 K/uL (1.00-4.80); LYMPHOCYTES PERCENT AUTO 30.7 % (24.0-44.0); MEAN CORPUSCULAR HEMOGLOBIN 31.4 pg (28.0-32.0); MEAN CORPUSCULAR HGB CONC 34.4 g/dL (32.0-36.0); MEAN CORPUSCULAR VOLUME 91.4 fL (83.0-99.0); MEAN PLATELET VOLUME 10.1 fL (9.4-12.4); MONOCYTES ABSOLUTE AUTO 1.03 K/uL (0.00-0.80); MONOCYTES PERCENT AUTO 11.9 % (0.0-8.0); NEUTROPHILS ABSOLUTE AUTO 4.78 K/uL (1.80-7.70); NEUTROPHILS PERCENT AUTO 55.6 % (41.0-71.0); PLATELET COUNT,PLT 258 K/uL (150-400); RED BLOOD CELL COUNT 5.09 M/uL (4.52-5.90); WHITE BLOOD CELL COUNT,WBC 8.62 K/uL (3.9-11.3)
[2024-06-27 23:30] LABS: INR 1.02 (0.86-1.11)
[2024-06-27] MEDS: Iopamidol 755 MG/ML 500 ML Multipack Bottle IVPUSH ONE (23:30)
[2024-06-27 23:48] LABS: A/G RATIO 1.1 (0.9-1.6); ALBUMIN 4.3 g/dL (3.4-5.0); BILIRUBIN TOTAL 0.8 mg/dL (0.2-1.0); CALCIUM 9.3 mg/dL (8.5-10.1); CARBON DIOXIDE,CO2 30.6 mmol/L (21.0-32.0); EST CRCL DRUG DOSING (CG) 89.22 mL/min; POTASSIUM,K 3.5 mmol/L (3.5-5.1); PROTEIN TOTAL,TP 8.2 g/dL (6.4-8.2)
[2024-06-28] MEDS ORDERED: Acetaminophen 325 MG Tab PO PRN (01:52)
[2024-06-28] MEDS ORDERED: Ondansetron 4 MG/2 ML SDV IVPUSH PRN (01:53)
[2024-06-28] MEDS: Sodium Chloride 0.9% 2.5 ML Syringe FLUSH PRN (02:00)
[2024-06-28 06:16] LABS: BASOPHILS ABSOLUTE AUTO 0.03 K/uL (0.00-0.20); BASOPHILS PERCENT AUTO 0.4 % (0.0-1.0); EOSINOPHILS ABSOLUTE AUTO 0.14 K/uL (0.00-0.45); EOSINOPHILS PERCENT AUTO 1.8 % (0.0-6.0); HEMATOCRIT 44.9 % (42.0-52.0); HEMOGLOBIN 15.2 g/dL (14.0-18.0); IMMATURE GRAN ABSOLUTE AUTO 0.01 K/uL (0.00-0.05); IMMATURE GRAN PERCENT AUTO 0.1 % (0.0-0.4); LYMPHOCYTES ABSOLUTE AUTO 2.51 K/uL (1.00-4.80); LYMPHOCYTES PERCENT AUTO 31.9 % (24.0-44.0); MEAN CORPUSCULAR HEMOGLOBIN 31.5 pg (28.0-32.0); MEAN CORPUSCULAR HGB CONC 33.9 g/dL (32.0-36.0); MEAN CORPUSCULAR VOLUME 93.2 fL (83.0-99.0); MEAN PLATELET VOLUME 10.4 fL (9.4-12.4); MONOCYTES ABSOLUTE AUTO 0.89 K/uL (0.00-0.80); MONOCYTES PERCENT AUTO 11.3 % (0.0-8.0); NEUTROPHILS ABSOLUTE AUTO 4.28 K/uL (1.80-7.70); NEUTROPHILS PERCENT AUTO 54.5 % (41.0-71.0); PLATELET COUNT,PLT 234 K/uL (150-400); RED BLOOD CELL COUNT 4.82 M/uL (4.52-5.90); WHITE BLOOD CELL COUNT,WBC 7.86 K/uL (3.9-11.3)
[2024-06-28 06:40] LABS: HEMOGLOBIN A1C 5.7 %
[2024-06-28 07:17] LABS: A/G RATIO 1.1 (0.9-1.6); ALBUMIN 3.7 g/dL (3.4-5.0); BILIRUBIN TOTAL 0.8 mg/dL (0.2-1.0); CALCIUM 9.2 mg/dL (8.5-10.1); EST CRCL DRUG DOSING (CG) 94.84 mL/min; POTASSIUM,K 3.7 mmol/L (3.5-5.1); PROTEIN TOTAL,TP 7.1 g/dL (6.4-8.2)
[2024-06-28] MEDS: Gadobenate Dimeglumine 529 MG/ML 20 ML SDV IVPUSH ONE (08:03)
[2024-06-28 08:56] LABS: MAGNESIUM 1.9 mg/dL (1.8-2.4); TSH ULTRASENSITIVE 4.17 uIU/mL (0.36-3.74)
[2024-06-28 09:19] LABS: T4 FREE 0.87 ng/dL (0.76-1.46)
[2024-06-28 10:10] VITALS: BP 125/88; PULSE 52
[2024-06-28] MEDS: Clopidogrel 75 MG Tab PO SCH (14:29)
[2024-06-28] MEDS: Aspirin 81 MG Tab.Chew PO SCH (14:29)
== END 2024-06-28 10:20 | disposition home or self-care (01) ==
LOC: MW.ED 23:03 → MW.MS 06-28 00:30
PROVIDERS: ADMIT Family Medicine; ATTEND Family Medicine
DX: H53.2 Diplopia (principal); E78.00 Pure hypercholesterolemia, unspecified; I10 Essential (primary) hypertension; G47.33 Obstructive sleep apnea (adult) (pediatric); K21.9 Gastro-esophageal reflux disease without esophagitis; E66.9 Obesity, unspecified; Z79.82 Long term (current) use of aspirin; Z79.899 Other long term (current) drug therapy; Z68.30 Body mass index [BMI] 30.0-30.9, adult
CPT/HCPCS: 36415; 70450; 70496; 70498; 70553; 71045; 80053; 80061; 82607; 82947; 83036; 83735; 84439; 84443; 84484; 85025; 85610; 93005; 93306; 99285; A9577; G0378; Q9967; 93010; 99235; J3490

== ENCOUNTER 2024-06-28 10:30 | Day surgery (SDC) | payer BC ==
[2024-06-28] MEDS: Lactated Ringers 1,000 ML IV SCH (11:15)
[2024-06-28] MEDS ORDERED: Lidocaine 2% 5 ML SDV ONE (12:55)
[2024-06-28] MEDS ORDERED: propofoL 50 ML ONE (12:56)
[2024-06-28] MEDS ORDERED: Glycopyrrolate 0.2 MG/ML SDV ONE (13:29)
[2024-06-28] MEDS ORDERED: Lactated Ringers 1,000 ML IV SCH (13:45)
[2024-06-28 14:35] VITALS: BP 118/65; PULSE 47
== END 2024-06-28 14:25 | disposition home or self-care (01) ==
LOC: MW.SDS 10:30
PROVIDERS: ATTEND Surgery
DX: Z12.11 Encounter for screening for malignant neoplasm of colon (principal); K21.9 Gastro-esophageal reflux disease without esophagitis; I10 Essential (primary) hypertension; I63.9 Cerebral infarction, unspecified; E66.9 Obesity, unspecified; G47.33 Obstructive sleep apnea (adult) (pediatric); Z79.82 Long term (current) use of aspirin; Z79.899 Other long term (current) drug therapy; Z68.33 Body mass index [BMI] 33.0-33.9, adult; Z80.0 Family history of malignant neoplasm of digestive organs; Z84.81 Family history of carrier of genetic disease
CPT/HCPCS: 45378; J1596; J2704; J7120; J3490

== ENCOUNTER 2025-07-30 06:35 | Day surgery (SDC) | payer BC ==
[2025-07-30] MEDS: Lactated Ringers 1,000 ML IV SCH (07:03)
[2025-07-30] MEDS ORDERED: Bupivacaine 0.5%/EPINEPHrine 1:200,000 30 ML SDV ONE (07:10)
[2025-07-30] MEDS ORDERED: Propofol 200 MG/20 ML SDV ONE (07:19)
[2025-07-30] MEDS ORDERED: fentaNYL 100 MCG/2 ML SDV ONE (07:22)
[2025-07-30] MEDS ORDERED: Dexamethasone 4 MG/ML 5 ML MDV ONE (07:23)
[2025-07-30] MEDS ORDERED: Ondansetron 4 MG/2 ML SDV ONE (07:23)
[2025-07-30] MEDS ORDERED: dexmedeTOMIDine HCl 200 MCG/2 ML SDV ONE (07:23)
[2025-07-30] MEDS ORDERED: Ketamine HCL/NACL, ISO-OSM 50 MG/5 ML Syringe ONE (07:52)
[2025-07-30] MEDS ORDERED: ceFAZolin 2 GM in Water For Injection, Sterile 20 ML IVPUSH ONE (08:00)
[2025-07-30] MEDS ORDERED: Ketorolac 30 MG/ML SDV ONE (08:32)
[2025-07-30] MEDS ORDERED: Ondansetron 4 MG/2 ML SDV IVPUSH PRN (08:58)
[2025-07-30] MEDS ORDERED: Albuterol 0.083% 2.5 MG/3 ML Neb Soln NEB PRN (08:58)
[2025-07-30] MEDS ORDERED: fentaNYL 50 MCG/ML SDV IVPUSH PRN (08:58)
[2025-07-30] MEDS ORDERED: Naloxone 0.4 MG/ML SDV IVPUSH PRN (08:58)
[2025-07-30 10:54] VITALS: BP 124/83; PULSE 57
== END 2025-07-30 10:45 | disposition home or self-care (01) ==
LOC: MW.SDS 06:35
PROVIDERS: ATTEND Orthopaedic Surgery
DX: S83.242A Other tear of medial meniscus, current injury, left knee, initial encounter (principal); M24.19 Other articular cartilage disorders, other specified site; I10 Essential (primary) hypertension; K21.9 Gastro-esophageal reflux disease without esophagitis; E66.9 Obesity, unspecified; Z68.34 Body mass index [BMI] 34.0-34.9, adult; Z79.82 Long term (current) use of aspirin; Z79.899 Other long term (current) drug therapy; Z68.30 Body mass index [BMI] 30.0-30.9, adult; Z87.891 Personal history of nicotine dependence
CPT/HCPCS: 29881; J0690; J1100; J1171; J1885; J2704; J3010; J7120; J0665; J2405; J3490